=== PATIENT | male | born 1990 | race Caucasian/White ===

== ENCOUNTER 2019-12-01 13:56 | Emergency (ER) | payer OTHER ==
[~2019-12-01] VITALS: Ht 180.3 cm; Wt 96.0 kg
[~2019-12-01 13:56] MED LIST: NO HOME MEDS; PIP1KIT21 TP
[2019-12-01] MEDS ORDERED: LORazepam 2 mg/ml vial IV ONE (14:40)
[2019-12-01] MEDS ORDERED: normal saline 1000ML IV soln IV ONE (14:40)
--- NOTE | 2019-12-01 15:13 | NUR ---
pt is refusing all treatment
[2019-12-01 15:30] VITALS: BP 129/86
== END 2019-12-01 15:34 | disposition home or self-care (01) ==
LOC: ER 13:56
DX: F15.10 Other stimulant abuse, uncomplicated (principal); R52 Pain, unspecified; R53.1 Weakness; Z59.0 Homelessness; Z79.899 Other long term (current) drug therapy
CPT/HCPCS: 99283